=== PATIENT | female | born 1980 | race Caucasian/White ===

== ENCOUNTER 2016-11-20 15:51 | Emergency (ER) | payer SELFPAY ==
[~2016-11-20] VITALS: Ht 154.9 cm; Wt 82.1 kg
[2016-11-20 16:11] VITALS: BP 114/84
[2016-11-20] MEDS ORDERED: AMOX875T PO (16:45)
--- NOTE | 2016-11-20 16:46 | PHYS DOC ---
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 Patient states she had subjective fevers for 3 days. Review of Systems Review of Systems Constitutional: Subjective fevers and body aches Eyes: Denies change in visual acuity, redness, or eye pain [] HENT:sore throat and ear pain Respiratory: Denies cough or shortness of breath [] Cardiovascular: No additional information not addressed in HPI [] GI: Denies abdominal pain, nausea, vomiting, bloody stools or diarrhea [] : Denies dysuria or hematuria [] Musculoskeletal: Denies back pain or joint pain [] Integument: Denies rash or skin lesions [] Neurologic: Denies headache, focal weakness or sensory changes [] Endocrine: Denies polyuria or polydipsia [] Allergies Allergies Allergies Coded Allergies Type Severity Reaction Last Updated Verified No Known Drug Allergies 07/16/13 No Physical Exam Physical Exam Constitutional: Well developed, well nourished, no acute distress, non-toxic appearance. [] HENT: Normocephalic, atraumatic, bilateral external ears normal, oropharynx moist, no oral exudates, nose normal. [] Bilateral TM are mildly injected. Eyes: PERRLA, EOMI, conjunctiva normal, no discharge. [] Neck: Normal range of motion, no tenderness, supple, no stridor. [] Cardiovascular:Heart rate regular rhythm, no murmur [] Lungs & Thorax: Bilateral breath sounds clear to auscultation [] Abdomen: Bowel sounds normal, soft, no tenderness, no masses, no pulsatile masses. [] Skin: Warm, dry, no erythema, no rash. [] Back: No tenderness, no CVA tenderness. [] Extremities: No tenderness, no cyanosis, no clubbing, ROM intact, no edema. [] Neurologic: Alert and oriented X 3, normal motor function, normal sensory function, no focal deficits noted. [] Psychologic: Affect normal, judgement normal, mood normal. [] Current Patient Data Vital Signs Vital Signs Date Time Temp Pulse Resp B/P Pulse Ox O2 Delivery O2 Flow Rate FiO2 11/20/16 16:11 99.1 96 20 96 Room Air 99.1 EKG EKG [] Radiology/Procedures Radiology/Procedures [] Course & Med Decision Making Course & Med Decision Making Pertinent Labs and Imaging studies reviewed. (See chart for details) Patient has bilateral otitis media and pharyngitis. Strep test is negative. Discharged with amoxicillin. Tylenol /Motrin for pain or fever. Follow-up with primary care doctor in one week. Dragon Disclaimer Dragon Disclaimer This electronic medical record was generated, in whole or in part, using a voice recognition dictation system. Departure Departure Impression: Primary Impression: Otitis media, chronic, bilateral Additional Impression: Acute pharyngitis Disposition: 01 HOME, SELF-CARE Condition: STABLE Referrals: NON,STAFF (PCP) Follow-up with your doctor in one week Patient Instructions: Otitis Media, Adult, Viral and Bacterial Pharyngitis Additional Instructions: You were seen for an ear infection and sore throat. Please complete your antibiotics. Take Tylenol/ Motrin for pain or fever. Use saltwater gargles as needed for sore throat. Come back to the ED symptoms worsen. Scripts Amoxicillin 875 Mg Tablet1 Tab PO BID #20 TAB Prov:RICK ROBLES APRN 11/20/16 Problem Qualifiers Additional Impression: Acute pharyngitis Pharyngitis/tonsillitis etiology: unspecified etiology Qualified Code: J02.9 - Acute pharyngitis, unspecified RICK ROBLES APRN Nov 20, 2016 16:46
[2016-11-21 07:23] LABS: NEGATIVE OBC STREP NEG; POSITIVE OBC STREP POS
== END 2016-11-20 16:50 | disposition home or self-care (01) ==
LOC: ER 15:51
DX: H66.93 Otitis media, unspecified, bilateral (principal); J02.9 Acute pharyngitis, unspecified; J45.909 Unspecified asthma, uncomplicated; R50.9 Fever, unspecified; Z86.19 Personal history of other infectious and parasitic diseases
CPT/HCPCS: 87070; 87880; 99283

== ENCOUNTER 2017-03-27 17:55 | Emergency (ER) | payer BC ==
[~2017-03-27 17:55] MED LIST: AMOX875T PO
[2017-03-27 18:00] VITALS: BP 134/81
[2017-03-27] MEDS ORDERED: CLIN300C8 PO (18:08)
[2017-03-27] MEDS ORDERED: NAPR500T PO (18:08)
[2017-03-27] MEDS ORDERED: TRAM50TA PO (18:08)
--- NOTE | 2017-03-27 18:09 | PHYS DOC ---
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 Patient states that she has dental caries in that area. She noted some slight swelling around the tooth and began taking left over amoxicillin. She's had 3 doses of that. She reports no fever, no difficulty with swallowing or phonation, no trismus. Review of Systems Review of Systems Constitutional: Denies fever or chills [] Eyes: Denies change in visual acuity, redness, or eye pain [] HENT: Denies nasal congestion or sore throat, dental pain [] Respiratory: Denies cough or shortness of breath [] Cardiovascular: No additional information not addressed in HPI [] GI: Denies abdominal pain, nausea, vomiting, bloody stools or diarrhea [] : Denies dysuria or hematuria [] Musculoskeletal: Denies back pain or joint pain [] Integument: Denies rash or skin lesions [] Neurologic: Denies headache, focal weakness or sensory changes [] Endocrine: Denies polyuria or polydipsia [] Allergies Allergies Allergies Coded Allergies Type Severity Reaction Last Updated Verified No Known Drug Allergies 07/16/13 No Physical Exam Physical Exam Constitutional: Well developed, well nourished, no acute distress, non-toxic appearance. [] HENT: Normocephalic, atraumatic, bilateral external ears normal, oropharynx moist, tooth #18 with partial decay, surrounding gingiva is swollen with erythema. There is no pointing or fluctuance noted no oral exudates, nose normal. No facial swelling[] Eyes: PERRLA, EOMI, conjunctiva normal, no discharge. [] Neck: Normal range of motion, no tenderness, supple, no stridor. [] Cardiovascular:Heart rate regular rhythm, no murmur [] Lungs & Thorax: Bilateral breath sounds clear to auscultation [] Skin: Warm, dry, no erythema, no rash. [] Back: No tenderness, no CVA tenderness. [] EKG EKG [] Radiology/Procedures Radiology/Procedures [] Course & Med Decision Making Course & Med Decision Making Pertinent Labs and Imaging studies reviewed. (See chart for details) [] Dragon Disclaimer Dragon Disclaimer This electronic medical record was generated, in whole or in part, using a voice recognition dictation system. Departure Departure Impression: Primary Impression: Dental abscess Disposition: 01 HOME, SELF-CARE Condition: STABLE Referrals: [facility] PCP [facility] Patient Instructions: Dental Abscess Scripts Tramadol Hcl (TRAMADOL HCL) 50 Mg Tablet 50 MG PO Q6HRS Y for PAIN, #12 TAB 0 Refills Prov: KRISTAN CASIANO APRN 03/27/17 Naproxen (NAPROSYN) 500 Mg Tablet 500 MG PO BID Y for PAIN, #20 TAB Prov: KRISTAN CASIANO APRN 03/27/17 Clindamycin Hcl (CLINDAMYCIN HCL) 300 Mg Capsule 1 CAP PO TID, #30 CAP Prov: KRISTAN CASIANO APRN 03/27/17 KRISTAN CASIANO APRN Mar 27, 2017 18:08
== END 2017-03-27 18:14 | disposition home or self-care (01) ==
LOC: ER 17:55
DX: K04.7 Periapical abscess without sinus (principal); K02.9 Dental caries, unspecified; J45.909 Unspecified asthma, uncomplicated
CPT/HCPCS: 99283